=== PATIENT | male | born 1935 | race Caucasian/White ===

== ENCOUNTER 2018-05-01 05:28 | Day surgery (SDC) | payer OTHER ==
[~2018-05-01] VITALS: Ht 170.2 cm; Wt 86.2 kg
--- NOTE | ~2018-05-01 | O ---
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 PROCEDURE: Excision of squamous cell carcinoma of left lower lid and cheek with frozen sections and myocutaneous flap repair of defect. SURGEON: Artem Nix MD. SURGICAL ASST: None. ANESTHESIA: MAC. COMPLICATIONS: None. INDICATIONS FOR SURGERY: This pleasant 82-year-old gentleman has a biopsy proven squamous cell carcinoma in his left lower lid, destroying the lid margin. 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 He presents today for excision of this known cancer with frozen section, control of margins and subsequent repair of that defect. Informed consent was obtained to include but not limited to the potential risk for loss of vision, bleeding, infection, failure to improve the problem, and the potential need for further surgery or treatment. DESCRIPTION OF PROCEDURE: The patient was taken to the operating room where 2% Xylocaine with epinephrine mixed with equal parts 0.75% Marcaine with Wydase was administered transcutaneously and transconjunctivally to the left lower lid, the left lateral canthus, the left cheek and the left infratemporal fossa. The patient was subsequently prepped and draped in the usual sterile fashion. A fine tip skin marking pen was then utilized to outline the lesion including 1-2 mm of normal appearing tissue. The lesion extended down on to the malar eminence. The incisions were then made perpendicularly across the eyelid margin with a Delores scissor and drawn down to a point in that premalar space in the upper lip. Hemostasis was achieved with diligent pinpoint monopolar cautery. The specimen was then oriented for the waiting pathologist. She snap froze that [address] [address] OPERATIVE REPORT Name: SHIRLEY PEREIRA Room #: 150-7 [facility] M.R.#: [id number] Admission: 05/01/18 ������������������ Attend Phys: Artem Nix MD Discharge: ������������������ Date of : 35 Report #: [id number] specimen and found that she indeed saw squamous cell carcinoma with actinic changes at the margin, but the margins were clear of invasive cancer. A myocutaneous flap was then developed laterally. It was outlined, relaxing incision was made and the subcutaneous structures were undermined to allow the flap to be rotated into position. Hemostasis was then re-achieved. The flap was then advanced and secured with multiple interrupted 5-0 Vicryl sutures deep. The tarsal plate was reapproximated with interrupted 5-0 Vicryl sutures deep. The eyelid margin was reapproximated with interrupted 7-0 Vicryl sutures. The subcutaneous structures and the skin were then closed with interrupted 6-0 plain gut sutures. The wounds were then cleaned and dressed with erythromycin ophthalmic ointment. The patient subsequently transported to the recovery area having tolerated the procedures well with no anesthetic or operative complications being noted. ��������������������������������������������� ���������������������������������������� By: ��������������������������������������������� [id number] Artem Nix MD /nt
[~2018-05-01 05:28] MED LIST: ALLOPURINOL 10100 M1 PO; ZOCOR20 MG PO
[2018-05-01 10:41] VITALS: BP 146/89
== END 2018-05-01 12:55 | disposition home or self-care (01) ==
LOC: TBA 05:28 → OR 05:28
DX: C44.1292 Squamous cell carcinoma of skin of left lower eyelid, including canthus (principal); C44.329 Squamous cell carcinoma of skin of other parts of face; E78.5 Hyperlipidemia, unspecified; Z85.828 Personal history of other malignant neoplasm of skin; Z96.652 Presence of left artificial knee joint; Z98.890 Other specified postprocedural states; Z79.899 Other long term (current) drug therapy
CPT/HCPCS: 50010; 50101; 50386; 50398; 51636; 56528; 56531